=== PATIENT | female | born 1990 | race Caucasian/White ===

== ENCOUNTER 2018-05-09 00:38 | Inpatient (IN) ==
--- NOTE | 2018-05-09 00:07 | OB/GYN History & Physical ---
Date of Encounter: 05/09/18 Time of Encounter: 00:04 Assessment and Plan (1) 39 weeks gestation of Current visit: Yes Status: Acute admitted for delivery (2) Morbid obesity with BMI of 45.0-49.9, adult Current visit: No Status: Chronic (3) Group B streptococcal infection during Current visit: Yes Status: Acute GBS prophylaxis (4) Tobacco abuse Current visit: Yes Status: Acute discussed smoking cessation History of Present Illness Chief complaint: Spontaneous labor HPI: Ms. De La Cruz is a 28 year old female @ 39w3d presents to labor and delivery with complaints of feeling contractions that are getting more intense. Patient unsure of leaking fluid on not. Patient reports +FM. Denies any vaginal bleeding. Patient denies any complications with current . Patient reports she is scheduled for IOL in the AM. Blood Type: O+ Rubella: Immune Hep B: Nonreactive GBS: Positive Past Med Surg Social Fam HX - Past Medical History Source: patient Medical history: other Additional medical history: fatty liver disease Psychiatric history: no psych history - Past Surgical History Surgical History: other Additional surgical history: oral sx x2 - Social History Smoking Status: Light tobacco smoker Smokeless Tobacco Status: No Alcohol use: none Drug use: none - Family History Mother Adopted: No Family Member Ethnicity: Non- Living Status: Still Living Hx Family Cardiac Disorders: Yes Hx Family Respiratory Disorders: Yes (Asthma) Hx Family Cancer: Yes (Precancerous cells on cervix) Hx Family GI Disorders: Yes (Diverticulitis) Hx Family Endocrine Disorder: Yes Hx Family Neuromuscular Disorders: No Hx Family Neurologic Disorders: No Hx Family HEENT Disorders: No Hx Family Autoimmune Disorders: No Obstetrical History - Pregnancies : 3 Para: 2 Term: 2 : 0 Ab's: 0 Livin Medications and Allergies One Daily Tablet 1 tab PO QDPC PRN 05/23/16 [History] Tylenol 1 tab PO QDPC PRN 05/23/16 [History] 3 Allergy/AdvReac Type Severity Reaction Status Date / Time bee venom protein (honey bee) AdvReac See Verified 05/08/18 23:57 Comments bupropion [From Wellbutrin] AdvReac [place] Verified 07/21/16 15:23 Review of System OB - Constitutional Constitutional ROS IM: no fever(s), no headache(s) - Cardiovascular Cardiovascular: no chest pain, no palpitations, no syncope - Respiratory Respiratory: no cough - Gastrointestinal Gastrointestinal: no diarrhea, no heartburn, no nausea, no vomiting - Genitourinary Genitourinary: vaginal discharge, no abnormal vaginal bleeding, no dysuria, no flank pain, no urinary incontinence, no urinary urgency, no vaginal odor, no vaginal pruritis Exam - Constitutional Constitutional: well developed, well nourished, no acute distress, average body habitus - HEENT HEENT: Normocephaly, Mucus Membranes Moist - Neck Neck exam: full ROM, supple - Lungs Respiratory exam: CTAB - Cardiovascular Cardiovascular exam: RRR, +S1, +S2 - Abdomen Abdomen: Present: bowel sounds normal, gravid, non tender - Extremities Extremities exam: full ROM, normal capillary refill Deep Tendon Reflex Grade: 2+ Normal - Vagina Vagina: Present: normal moisture - Cervix Dilation: 6 Effacement: 75 Station: -3 - Uterus Uterus exam: Present: normal size, normal contour - Anus/Rectum Anus/Rectum: Present: normal perianal skin - Comments Comments: FHR 135 bpm moderate variability +15x15 accels no decels noted. Irregular contractions. CAt. 1 tracing. Results All other labs normal. - VTE Reasons for not Prescribing Prophylaxis: Treatment not Indicated - Low risk for VTE
[~2018-05-09 00:38] MED LIST: *HR* Nalbuphine 10 MG/ML AMPUL IVP PRN; Famotidine 20 MG/2 ML VIAL IVP PRN; Naloxone 0.4 MG/ML INJ IVP PRN; Ondansetron 4 MG/2 ML VIAL IVP PRN; Penicillin G Potassium 5,000,000 UNIT in 0.9 % Sodium Chloride Mini Bag 100 ML IVPB ONE; Ringers Solution, Lactated 1,000 ML IVC SCH
[2018-05-09 00:47] LABS: Basophils # 0.1 K/mcL (0.0-0.2); Basophils % 0.4 %; Eosinophils # 0.2 K/mcL (0.0-0.6); Eosinophils % 1.6 %; Hematocrit 34.7 % (35.3-44.9); Hemoglobin 11.1 g/dL (11.5-15.4); Immature Granulocytes % 0.5 % (0-4); Lymphocytes # 2.6 K/mcL (0.6-4.6); Lymphocytes % 19.3 %; Mean Corpuscular Hemoglobin 26.4 pg (28.0-33.3); Mean Corpuscular Volume 82.4 fL (83.0-100.0); Mean Platelet Volume 11.4 fL (9.4-12.4); Monocytes # 0.7 K/mcL (0.0-1.3); Monocytes % 4.9 %; Neutrophils # 9.8 K/mcL (1.6-8.9); Platelet Count 328 K/mcL (140-400); Red Blood Count 4.21 M/mcL (3.82-4.97); Segmented Neutrophils % 73.3 %
[2018-05-09] MEDS ORDERED: *HR* FentaNYL (PF) 100 MCG/2 ML VIAL EP ONE (00:49)
[2018-05-09 00:51] LABS: Amphetamine Screen,Urine Negative ng/mL (Cutoff=1000); Barbiturate Screen,Urine Negative ng/mL (Cutoff=200); Benzodiazepines Screen,Urine Negative ng/mL (Cutoff=200); Cannabinoid Screen,Urine Negative ng/mL (Cutoff = 50); Cocaine Screen,Urine Negative ng/mL (Cutoff= 300); Opiate Screen,Urine Negative ng/mL (Cutoff=300); Phencyclidine Screen,Urine Negative ng/mL (Cutoff=25)
--- NOTE | 2018-05-09 00:59 | Anesthesia Evaluation PreOp ---
Date of Encounter: 05/09/18 Time of Encounter: 00:57 - Past History Planned Operation: pretty Cardiac History: Denies any Significant Hx Pulmonary History: Smoker, Pack/yr (1/2ppd 8 year) [employer] History: Denies Any Significant HX Other Medical History: Hepatic (fatty liver disease), GERD Anesthesia History: No Prior Anesthetic Complications, Past Anesthesia (pretty x 2) : Yes Test: Positive Alcohol Use: none Drug use: none Medications and Allergies One Daily Tablet 1 tab PO QDPC PRN 05/23/16 [History] Tylenol 1 tab PO QDPC PRN 05/23/16 [History] 3 Allergy/AdvReac Type Severity Reaction Status Date / Time bee venom protein (honey bee) AdvReac See Verified 05/08/18 23:57 Comments bupropion [From Wellbutrin] AdvReac Flushing Verified 07/21/16 15:23 - Meds/Allergy Pre-op Review Medications Reviewed: Yes Allergies Reviewed: Yes Beta Blockers on Current Med List: No Anesthesia Results - Labs 05/09/18 00:10 Anesthesia Exam 150/80 78 fht 144 Height: 5'6" Weight: 138 k NPO (# of Hours): 4 Pain Scale: 6 Pain Scale Used: Numeric (1 - 10) - HEENT Pupil (Motor): Pupils equal Mallampati: II Teeth: Normal Oral Opening: Greater than 3 - [employer] LOC: Oriented [employer] Motor: Normal RUE, Normal LUE, Normal RLE, Normal LLE, Normal Face [employer] Sensory: Normal: RUE, LUE, RLE, LLE, Face - Cardiac Rhythm: Regular Murmur: None - Pulmonary Breath Sounds: bilateral Clear Respiratory Effort: Symmetrical Anesthesia Assess/Plan ASA Score: 3 (MO, smoker, liver) Modified [place] Scale for Level of Consciousness: Cooperative, oriented, and tranquil Anesthetic Plan: Regional Autologous Blood: No Monitoring Plan: Standard Monitors Recovery Plan: Other (risks discussed questions answered, consented)
[2018-05-09] MEDS ORDERED: Epidural Premix (fent/bupiv) 110 ML EP SCH (01:00)
[2018-05-09] MEDS ORDERED: *HR* FentaNYL (PF) 100 MCG/2 ML VIAL ONE (01:03)
[2018-05-09] MEDS ORDERED: Lidocaine -MPF 2% 5 ML VIAL ONE (01:03)
--- NOTE | 2018-05-09 01:34 | Anesthesia Procedures ---
Date of Encounter: 05/09/18 Time of Encounter: 01:32 Procedures: Anesthesia - Epidural/Spinal Patient ID/Chart reviewed: Yes Patient examined: Yes OB Eval: Gestational age: 39 OB Eval: : 3 OB Eval: Hx Para: 2 OB Eval: Dilated at (cm): 6 OB Eval: Contractions: Non-stressed pattern Consent Obtained: Yes Supplemental Oxygen: None/Room Air Site Prep: Aseptic Technique, Sterile prep and drape, 0.5% Chlorhexidine/Alcohol Patient position: upright Local Anesthetic: Lidocaine 1% Amount of Local Anesthetic used: 3 Touhy Needle Gauge: 18 Touhy Needle Depth (cm): 10 Catheter Depth at Skin (cm): 20 Test Dose (1.5% Lido + Epi): Volume given (mls): 3 Test Dose Result: Negative Loading Dose: Fentanyl (mcg): 100 Loading Dose: Other: rop 0.2% 10 cc Loading Dose Administered: Thru Touhy Needle Infusion Med: 0.125% Bupivacaine w/ 2 mcg/ml Fentanyl Infusion Rate (mls/hr): 15 (Pcea 5 cc q 30") Catheter Secured in Place: Tegaderm Interspace Used: L2-L3 Loss of Resistance (VILLA): Yes Blood: No CSF: No Paresthesia: No Procedure: aseptic, ellen well, VSS, effective Vitals + FHT's: 121/80 88 fht 144
[2018-05-09] MEDS ORDERED: Penicillin G Potassium 2,500,000 UNIT in 0.9 % Sodium Chloride 100 ML IVPB SCH (04:00)
[2018-05-09] MEDS ORDERED: Oxytocin 20 units/ LR 1000 mL 20 UNIT/1,000 ML BAG IVC ONE (04:31)
[2018-05-09 04:46] LABS: Alanine Aminotransferase 37 Units/L (7-52); Aspartate Amino Transferase 33 Units/L (13-39); BUN/Creatinine Ratio 23 (6-26); Blood Urea Nitrogen 12 mg/dL (6-20); Lactate Dehydrogenase 155 Units/L (140-271); Uric Acid 4.6 mg/dL (2.3-7.6); eGFR For African Americans > 60 (> 60); eGFR For Non-African Americans > 60 (> 60)
[2018-05-09 05:03] LABS: Protein/Creatinine Ratio,Urine 0.2 mg/mg (0.00-0.20)
--- NOTE | 2018-05-09 06:24 | OB/GYN Procedure Note ---
Delivery - Delivery Date: 05/09/18 Provider: Antonieta Elaine Intrapartum events: none Delivery induction: none Delivery monitor: external FHT, external uterine Anesthesia: epidural Quantitated Blood Loss: 150 - (s) Infant A Delivery Date: 05/09/18 Infant Delivery Time: 05:54 Presentation: vertex Position: WINDY Route of delivery: Gender: Male Viability: Viable Pounds: 8 Ounces: 2 Weight Gram: 3.675 kg at 1 minute: 8 at 5 mins: 9 Shoulder Dystocia: not encountered Specimens collected: cord blood Placenta: spontaneous Cord: 3 umbilical vessels - Repair Episiotomy: none Laceration Description: None - Complications Delivery complications: none - Disposition Mom disposition: stable in LDR disposition: stable in LDR - Comments Comments: Called to LDR patient in stirrups, complete and pushing. Under maternal effort patient spontaneously delivered a viable male infant over an intact perineum. No nuchal cord, shoulder dystocia or meconium was encountered. Infant was placed on maternal abdomen. Cord was clamped and cut after pulsations ceased. Cord blood collected. Placenta delivered spontaneously and intact. EBL 150cc, Apgars 8/9. Pericare provided, all counts correct. Both mother and stable in LDR for 2 hour recovery.
[2018-05-09] MEDS ORDERED: Prenatal Vit/FA 1 EACH TABLET PO SCH (09:07)
[2018-05-09] MEDS ORDERED: Oxytocin 20 units/ LR 1000 mL 20 UNIT/1,000 ML BAG IVC SCH (09:07)
[2018-05-09] MEDS ORDERED: Measles/Mumps/Rubella Vacc 0.5 ML VIAL SQ PRN (09:07)
[2018-05-09] MEDS: Ibuprofen 600 MG TABLET PO PRN ×3 (09:25→23:00)
[2018-05-09] MEDS: Acetaminophen 325 MG TABLET PO PRN ×2 (14:41→20:21)
[2018-05-10] MEDS: Acetaminophen 325 MG TABLET PO PRN (03:59)
[2018-05-10] MEDS: Ibuprofen 600 MG TABLET PO PRN (08:14)
--- NOTE | 2018-05-10 08:28 | Discharge Summary ---
Date of Encounter: 05/10/18 Time of Encounter: 08:25 - Discharge Diagnosis (1) 39 weeks gestation of Priority: Secondary Status: Acute (2) Morbid obesity with BMI of 45.0-49.9, adult Priority: Secondary Status: Chronic (3) Group B streptococcal infection during Priority: Secondary Status: Acute (4) Tobacco abuse Priority: Secondary Status: Acute (5) (normal spontaneous vaginal delivery) Priority: Primary Status: Acute Comments: Continue routine care discharge home today follow up in 4-[address] Carr - Discharge Medications Prescriptions: Ibuprofen [Motrin] 600 mg PO Q6HR PRN #60 tablet PRN Reason: Cramping Docusate [Colace] 100 mg PO BID #60 capsule Home Medications: Docusate [Colace] 100 mg PO BID #60 capsule 05/10/18 [Rx] Ibuprofen [Motrin] 600 mg PO Q6HR PRN #60 tablet 05/10/18 [Rx] Vit/FA 1 each PO DAILY tablet 05/10/18 [Rx] Allergies/Adverse Reactions: 3 Allergy/AdvReac Type Severity Reaction Status Date / Time bee venom protein (honey bee) AdvReac See Verified 05/08/18 23:57 Comments bupropion [From Wellbutrin] AdvReac [place] Verified 07/21/16 15:23 Data Procedures and tests throughout hospitalization: Laboratory Tests 05/09/18 05/09/18 05/09/18 00:10 00:10 00:10 WBC 13.4 H RBC 4.21 Hgb 11.1 L Hct 34.7 L MCV 82.4 L MCH 26.4 L MCHC 32.0 RDW 16.0 H Plt Count 328 MPV 11.4 Immature Gran % 0.5 Seg Neutrophils % 73.3 Lymphocytes % 19.3 Monocytes % 4.9 Eosinophils % 1.6 Basophils % 0.4 Neutrophils # 9.8 H Lymphocytes # 2.6 Monocytes # 0.7 Eosinophils # 0.2 Basophils # 0.1 BUN Creatinine Est GFR ( Amer) Est GFR (Non-Af Amer) BUN/Creatinine Ratio Uric Acid AST ALT Lactate Dehydrogenase Urine Creatinine 177 Protein/Creatinin Ratio 0.20 Urine Total Protein 36 H Urine Opiates Screen Negative Ur Barbiturates Screen Negative Ur Phencyclidine Scrn Negative Ur Amphetamines Screen Negative U Benzodiazepines Scrn Negative Urine Cocaine Screen Negative U Marijuana (THC) Screen Negative Ur Drug Screen Interp See Below 05/09/18 00:10 WBC RBC Hgb Hct MCV MCH MCHC RDW Plt Count MPV Immature Gran % Seg Neutrophils % Lymphocytes % Monocytes % Eosinophils % Basophils % Neutrophils # Lymphocytes # Monocytes # Eosinophils # Basophils # BUN 12 Creatinine 0.53 L Est GFR ( Amer) > 60 Est GFR (Non-Af Amer) > 60 BUN/Creatinine Ratio 23 Uric Acid 4.6 AST 33 ALT 37 Lactate Dehydrogenase 155 Urine Creatinine Protein/Creatinin Ratio Urine Total Protein Urine Opiates Screen Ur Barbiturates Screen Ur Phencyclidine Scrn Ur Amphetamines Screen U Benzodiazepines Scrn Urine Cocaine Screen U Marijuana (THC) Screen Ur Drug Screen Interp Date of admission: 05/09/18 00:38 Consults: 05/09/18 09:07 Consult to Clinical Appeals Auditor [CONS] Routine Reason for SW Consult: cord stat-THC Discharging clinician: Antonieta Elaine Anticipated date of discharge: 05/10/18 - Patient Status Disposition: Home, Self-Care Condition: Good Functional capacity at discharge: independent ambulation - Discharge Instructions Follow Up With: Emy Carr DO [Partnered Physician] - - Diet and Activity Activity: increase activity as tolerated Diet: regular diet Hospital Course Reason for admission: active labor Delivery: Episiotomy: none Laceration: none Other procedures: none complications: none Discharge diagnosis: IUP at term delivered [place] baby: male (bottle feeding) Time Attestation: Total time spent providing and/or coordinating discharge services: Time Spent: Less than 30 minutes Exam - Constitutional Vitals: Temp Pulse Resp BP Pulse Ox 97.8 F 82 16 109/75 97 05/10/18 04:07 05/10/18 04:07 05/10/18 04:07 05/10/18 04:07 05/10/18 04:07 General appearance IM: A&O X 3, morbidly obese, pleasant, answers questions appropriately - Respiratory Respiratory exam: Present: CTAB - Cardiovascular Cardiovascular exam IM: Present: RRR, +S1, +S2 - GI/Abdominal GI/Abdominal exam IM: normal bowel sounds - Uterine Tone: Firm Uterus Position: 2 Fingers Below Umbilicus, Midline - Extremities Exam Extremities exam IM: Present: full ROM, normal inspection - Neurological Exam Neurological exam: alert, oriented X3, reflexes normal
[2018-05-10 09:18] VITALS: BP 108/77
== END 2018-05-10 11:30 | disposition home or self-care (01) | DRG 560 ==
LOC: 1NENULAB → 1NENUOBS 08:55
PROVIDERS: ADMIT Advanced Practice Midwife; ATTEND Advanced Practice Midwife

== ENCOUNTER → 2021-06-15 17:30 | Observation (INO) | END | disposition home or self-care (01) | LOC: 1NENULAB | PROVIDERS: ADMIT Obstetrics & Gynecology; ATTEND Obstetrics & Gynecology ==

== ENCOUNTER 2021-06-22 21:57 | Inpatient (IN) ==
[2021-06-22] MEDS ORDERED: Naloxone 0.4 MG/ML INJ IVP PRN (22:23)
[2021-06-22] MEDS ORDERED: Penicillin G Potassium 5,000,000 UNIT in 0.9 % Sodium Chloride Mini Bag 100 ML IVPB ONE (22:23)
[2021-06-22] MEDS ORDERED: Famotidine 20 MG/2 ML VIAL IVP PRN (22:23)
[2021-06-22] MEDS ORDERED: Lidocaine 1% 20 ML MDV INFILT PRN (22:23)
[2021-06-22] MEDS ORDERED: Ondansetron 4 MG/2 ML VIAL IVP PRN (22:23)
[2021-06-22] MEDS ORDERED: Metoclopramide 10 MG/2 ML VIAL IVP PRN (22:23)
[2021-06-22 22:40] LABS: Basophils # 0.1 K/mcL (0.0-0.2); Basophils % 0.5 %; Eosinophils # 0.2 K/mcL (0.0-0.6); Eosinophils % 1.4 %; Hematocrit 35.5 % (35.3-44.9); Immature Granulocytes % 0.5 % (0-4); Lymphocytes # 2.7 K/mcL (0.6-4.6); Lymphocytes % 20.6 %; Mean Corpuscular Hemoglobin 25.6 pg (28.0-33.3); Mean Corpuscular Volume 82.6 fL (83.0-100.0); Mean Platelet Volume 10.9 fL (9.4-12.4); Monocytes # 0.7 K/mcL (0.0-1.3); Monocytes % 5.3 %; Neutrophils # 9.6 K/mcL (1.6-8.9); Platelet Count 320 K/mcL (140-400); Red Cell Distribution Width 15.5 % (11.5-14.5); Segmented Neutrophils % 71.7 %; White Blood Count 13.3 K/mcL (4.3-11.1)
[2021-06-22] MEDS ORDERED: Ringers Solution, Lactated 1,000 ML ONE (22:45)
[2021-06-22 22:49] LABS: Amphetamine Screen,Urine Negative ng/mL (Cutoff=1000); Barbiturate Screen,Urine Negative ng/mL (Cutoff=200); Benzodiazepines Screen,Urine Negative ng/mL (Cutoff=200); Cannabinoid Screen,Urine Negative ng/mL (Cutoff = 50); Cocaine Screen,Urine Negative ng/mL (Cutoff= 300); Opiate Screen,Urine Negative ng/mL (Cutoff=300); Phencyclidine Screen,Urine Negative ng/mL (Cutoff=25)
[2021-06-22 23:22] LABS: Influenza A PCR Negative (Negative); Influenza B PCR Negative (Negative); Resp. Syncytial Virus PCR Negative (Negative)
[2021-06-22 23:23] LABS: SARS-CoV-2 by PCR (In House) Negative (Negative)
[2021-06-22] MEDS ORDERED: Epidural Premix (fent/bupiv) 110 ML EP SCH (23:45)
[2021-06-22] MEDS ORDERED: EPHEDrine 50 MG/ML VIAL IVP PRN (23:56)
[2021-06-23] MEDS ORDERED: Ropivacaine/PF 0.2% 20 ML VIAL ONE ×3 (00:16→19:10)
[2021-06-23] MEDS ORDERED: Ringers Solution, Lactated 1,000 ML ONE (01:24)
[2021-06-23] MEDS ORDERED: Oxytocin 20 units/ LR 1000 mL 20 UNIT/1,000 ML BAG IVC SCH (01:30)
[2021-06-23] MEDS ORDERED: Ringers Solution, Lactated 1,000 ML IVC SCH (01:30)
[2021-06-23] MEDS: Penicillin G Potassium 2,500,000 UNIT/105 ML MLS IVPB SCH ×4 (03:39→16:35)
[2021-06-23] MEDS ORDERED: *HR* FentaNYL (PF) 100 MCG/2 ML VIAL ONE ×4 (12:06→19:09)
[2021-06-23] MEDS ORDERED: Lanolin 7 G OINT...G. TP PRN (21:47)
[2021-06-23] MEDS ORDERED: Measles/Mumps/Rubella Vacc 0.5 ML VIAL SQ PRN (21:47)
[2021-06-23] MEDS: Acetaminophen 325 MG TABLET PO SCH (22:08)
[2021-06-23] MEDS: Ibuprofen 600 MG TABLET PO SCH (22:08)
[2021-06-24] MEDS: Oxytocin 20 units/ LR 1000 mL 20 UNIT/1,000 ML BAG IVC SCH ×2 (00:44→09:18)
[2021-06-24] MEDS: Ibuprofen 600 MG TABLET PO SCH ×2 (04:03→10:19)
[2021-06-24] MEDS: Acetaminophen 325 MG TABLET PO SCH ×2 (04:03→13:03)
[2021-06-24] MEDS ORDERED: Prenatal Vit/FA 1 EACH TABLET PO SCH (09:00)
[2021-06-24] MEDS: *HR* Enoxaparin 60 MG/0.6 ML SYRINGE SQ SCH (09:18)
[2021-06-24] MEDS ORDERED: Famotidine 20 MG TABLET PO SCH (21:00)
[2021-06-24 22:43] VITALS: BP 126/80; PULSE 90; TEMP 98.1; O2SAT 99
[2021-06-25] MEDS: Ibuprofen 600 MG TABLET PO SCH (00:19)
[2021-06-25] MEDS: Acetaminophen 325 MG TABLET PO SCH (00:19)
[2021-06-25] MEDS: *HR* Enoxaparin 60 MG/0.6 ML SYRINGE SQ SCH (00:19)
== END 2021-06-25 00:21 | disposition home or self-care (01) | DRG 560 ==
LOC: 1NENULAB 21:57 → 1NENUOBS 06-23 22:53
PROVIDERS: ADMIT Obstetrics & Gynecology; ATTEND Obstetrics & Gynecology